=== PATIENT | male | born 1985 | race Caucasian/White ===

== ENCOUNTER 2024-04-26 08:36 | Emergency (ER) | payer OTHER, SELFPAY ==
[2024-04-26 08:50] VITALS: BP 113/72; PULSE 53; RESP 18; TEMP 36.7; O2SAT 97
--- NOTE | 2024-04-26 09:00 | ED.EYEPROB ---
HPI - Eye Problem General Chief complaint: Eye Problems Stated complaint: lt eye infection Time Seen by Provider: 04/26/24 08:39 Source: patient Mode of arrival: ambulatory Limitations: no limitations History of Present Illness HPI Narrative: 38-year-old male presents to [facility] with complaints of erythema, irritation and swelling to left upper eyelid the past 2 days prior patient does not wear contacts or glasses. Patient denies injury to his eye. Patient reports he has been applying cool compresses and warm compress with low relief. Patient denies extreme visual changes, fever, body aches, chills, nausea vomiting or diarrhea. MD chief complaint: other (redness, swelling and pain to left upper eyelid ) Onset (ago): day(s) (2) Location: left eye Eye Symptoms: redness and pain Mechanism: none Associated symptoms: none Treatments Prior to Arrival: ice and other (warm compress ) Related Data Allergies Allergy/AdvReac Type Severity Reaction Status Date / Time No Known Allergies Allergy Verified 04/26/24 08:49 Review of Systems Constitutional: Constitutional: Denies chills, Denies fatigue, Denies fever(s) and Denies weakness Eyes: Comments: Erythema, pain and swelling to left upper eyelid ENT: Denies vertigo, Denies dizziness, Denies epistaxis and Denies nasal congestion Respiratory: Respiratory: Denies cough, Denies dyspnea and Denies wheezing Gastrointestinal: Gastrointestinal: Denies diarrhea, Denies nausea and Denies vomiting Musculoskeletal: Musculoskeletal: Denies arthralgias and Denies joint swelling Integumentary/Breasts: Skin/Breast: Denies pruritus Neurologic: Denies dizziness, Denies syncope and Denies headache(s) PMFSH Comments At time of signature, I agree with nursing past medical, surgical, social and family history. There is no relevant family history pertinent to the presenting complaint. Exam Const: General: healthy appearing and no acute distress Nutritional Appearance: well nourished Orientation/consciousness: patient oriented x3 Limitations: no limitations HENMT: Head: normal to inspection Face and sinus: normal facial exam Eyes: Conjunctivae: conjunctivae normal Pupils: Equal, round and reactive pupils present EOM: EOMs intact bilaterally Direct Ophthalmoscopy: no photophobia Other: Mild erythema and swelling noted to left upper eyelid with possible small stye noted to left inner upper eyelid. Symptoms likely represent more of a blepharitis. There is no discharge noted at this time. Neck: Neck: normal visual inspection Resp: Effort & Inspection: normal respiratory effort and not labored Auscultation: clear to auscultation bilaterally, no crackles, no rales, no rhonchi and no wheezes Cardio: Rate: regular rate Rhythm: regular rhythm Heart sounds: no murmurs Skin: General skin exam: normal color Rashes: no rashes Neuro: General: patient oriented x3 and moves all extremities Cranial nerves: Yes Nystagmus not present Speech: normal speech Gait exam (Neuro): Normal gait present Psych: Affect: normal affect Attitude: cooperative Course Course Level of Care: Express Care Visit Vital Signs Vital signs: Vital Signs Temperature 36.7 C 04/26/24 08:50 Pulse Rate 53 L 04/26/24 08:50 Respiratory Rate 18 04/26/24 08:50 Blood Pressure 113/72 04/26/24 08:50 Pulse Oximetry 97 04/26/24 08:50 Oxygen Delivery Room Air 04/26/24 08:50 Temperature 36.7 C 04/26/24 08:50 Pulse Rate 53 L 04/26/24 08:50 Respiratory Rate 18 04/26/24 08:50 Blood Pressure 113/72 04/26/24 08:50 Pulse Oximetry 97 04/26/24 08:50 Oxygen Delivery Room Air 04/26/24 08:50 MDM - Eye Problem MDM Narrative Medical decision making narrative: Discuss differential diagnoses with patient; patient agrees to take medications as prescribed. Patient agrees to follow-up with eye doctor if symptoms not improved Differential Diagnosis Differential diagnosis: Likely
== END 2024-04-26 09:12 | disposition home or self-care (01) ==
PROVIDERS: Emergency Provider Nurse Practitioner Family
DX: H01.004 Unspecified blepharitis left upper eyelid (principal); Z98.52 Vasectomy status
CPT/HCPCS: 99203; G0463

== ENCOUNTER 2025-08-29 07:40 | Emergency (ER) | payer OTHER, SELFPAY ==
[2025-08-29 07:44] VITALS: BP 129/87; PULSE 79; RESP 18; TEMP 36.4; O2SAT 100
[2025-08-29 09:20] VITALS: BP 130/97; PULSE 76; RESP 16; TEMP 36.4; O2SAT 100
--- NOTE | 2025-08-29 10:17 | ED.BACK ---
HPI - Back Pain/Injury General Chief Complaint: Back Pain/Injury Stated Complaint: back pain Time Seen by Provider: 08/29/25 10:02 History of Present Illness HPI Narrative: Patient was doing sit-ups a couple days ago when he feels like he tweaked his back, over last 2 days has gotten more stiff and painful, been trying ibuprofen and icy Hot with minimal improvement. No focal numbness or weakness, does feel like it is across the lower back, not the midline. Able to walk without issues. Related Data Allergies Allergy/AdvReac Type Severity Reaction Status Date / Time No Known Allergies Allergy Verified 08/29/25 09:20 Review of Systems Review of Systems: All systems reviewed & are unremarkable except as noted in HPI and below Exam Narrative: EXAMINATION OF ORGAN SYSTEMS/BODY AREAS: Constitutional: Vital signs per nursing GENERAL:[No acute distress, non-toxic appearing.] HEAD: Normal with no signs of head trauma. EYES: EOMI, conjunctiva normal ENT: Hearing grossly intact LUNGS: Nonlabored breathing. HEART: [Regular rate and rhythm], normal DP pulses bilaterally ABD: [Soft], [nontender to palpation] EXT: Normal range of motion; no midline tenderness; some tenderness bilateral lower back SKIN: [No rashes or lesions.] NEURO: [Alert and oriented x 3. No gross focal sensory or strength deficits; normal strength bilateral lower extremities.] Normal ambulation. PSYCH: Normal affect Course Vital Signs Vital signs: Vital Signs Temperature 97.5 F L 08/29/25 07:44 Pulse Rate 79 08/29/25 07:44 Respiratory Rate 18 08/29/25 07:44 Blood Pressure 129/87 08/29/25 07:44 Pulse Oximetry 100 08/29/25 07:44 Oxygen Delivery Room Air 08/29/25 07:44 Temperature 97.5 F L 08/29/25 09:20 Pulse Rate 76 08/29/25 09:20 Respiratory Rate 16 08/29/25 09:20 Blood Pressure 130/97 H 08/29/25 09:20 Pulse Oximetry 100 08/29/25 09:20 Oxygen Delivery Room Air 08/29/25 09:20 MDM - Back Pain/Injury MDM Narrative Medical decision making narrative: ED COURSE AND MEDICAL DECISION MAKIN-year-old male with acute back pain. Normal motor and sensory exam. Patient able to ambulate. No evidence of acute cord compression, osteomyelitis/discitis or cauda equina without saddle anesthesia, urinary retention/incontinence, numbness/tingling in lower extremities, fever, history of IV drug use, cancer or immunosuppression. Doubt AAA or aortic dissection without severe pain/discomfort or any neurovascular deficits. [Ketorolac 15mg IM] given for symptomatic relief; he did drive so I did not order any sedating medications. At this time, I do not believe the patient requires imaging studies. Will reevaluate the need for further investigations after the medications. [I discussed management of acute back pain in detail, explaining the need to remain active and the goals of pain control.] Patient is given return precautions and instructed to come back at any point in time for worsening pain, fevers, weakness, difficulty walking, urinary or fecal incontinence. Patient expressed understanding of instructions. Discharge Plan Discharge Clinical Impression: Strain of lumbar region Patient Disposition: Home Condition: Stable Instructions: Acute Low Back Pain (ED) Additional Instructions: Continue with ibuprofen, try the meds as prescribed, and follow up with your doctor; if you start having any worsening issues especially new numbness or weakness or tingling in your legs, difficulty walking or going to the bathroom, severe pain or anything else concerning, return to the ER immediately. Patient Language: Japanese Prescriptions: New methocarbamol 750 mg tablet 750 mg PO TID PRN (Reason: muscle spasm) Qty: 30 0RF lidocaine 5 % adhesive patch,medicated 1 patch topical DAILY Qty: 15 0RF Rx Instructions: leave on most painful area for up to 12 hrs No Action erythromycin 5 mg/gram (0.5 %) ointment 1 applic LEFT EYE Q6H 7 Days Qty: 3.5 0RF prednisone 20 mg tablet 40 mg PO DAILY 5 Days Qty: 10 0RF Follow-up/Referrals: STOUGHTON, [Primary Care Provider]
[2025-08-29] MEDS: LIDOCAINE 5% PATCH 1 PATCH TRANSDERM (10:26)
[2025-08-29] MEDS: KETOROLAC 30 MG/ML VIAL (*BKC) 15 MG IM (10:27)
[2025-08-29 10:32] VITALS: BP 132/89; PULSE 78; RESP 16; O2SAT 100
== END 2025-08-29 10:32 | disposition home or self-care (01) ==
LOC: ANHED 10:16
PROVIDERS: Emergency Provider Emergency Medicine
DX: S39.012A Strain of muscle, fascia and tendon of lower back, initial encounter (principal); X50.3XXA Overexertion from repetitive movements, initial encounter
CPT/HCPCS: 96372; 99283; A9270; J1885